=== PATIENT | male | born 1960 | race Caucasian/White ===

== ENCOUNTER 2020-04-12 13:11 | Emergency (ER) | payer MEDICARE, MEDICAID ==
[~2020-04-12] VITALS: Ht 175.3 cm; Wt 69.5 kg
[2020-04-12 14:05] LABS: BASOPHILS # (AUTO) 0.1 X10'3 (0-0.2); BASOPHILS % (AUTO) 1.2 % (0-1); EOSINOPHILS # (AUTO) 0.1 X10'3 (0-0.9); EOSINOPHILS % (AUTO) 1.8 % (0-6); HEMATOCRIT 35.1 % (42.0-52.0); HEMOGLOBIN 12.5 g/dl (14.0-17.9); LYMPHOCYTES # (AUTO) 1.9 X10'3 (1.1-4.8); LYMPHOCYTES % (AUTO) 28.3 % (21-51); MEAN CORPUSCULAR HEMOGLOBIN 30.8 PG (27.0-31.0); MEAN CORPUSCULAR HGB CONC 35.6 g/dL (33.0-36.5); MEAN CORPUSCULAR VOLUME 86.6 FL (78-98); MONOCYTES # (AUTO) 0.5 X10'3 (0-0.9); MONOCYTES % (AUTO) 7.4 % (2-12); NEUTROPHILS % (AUTO) 61.3 % (42-75); PLATELET COUNT 197 X10'3 (140-440); RED BLOOD COUNT 4.05 X10'6 (4.70-6.10); RED CELL DISTRIBUTION WIDTH 13.1 % (11.5-14.5); WHITE BLOOD COUNT 6.6 X10'3 (4.5-11.0)
[2020-04-12 14:19] LABS: ALANINE AMINOTRANSFERASE 33 U/L (12-78); ALBUMIN/GLOBULIN RATIO 1.3 (1.1-1.5); ALKALINE PHOSPHATASE 114 IU/L (46-116); ANION GAP 9 (8-16); ASPARTATE AMINO TRANSFERASE 27 U/L (10-37); BILIRUBIN,TOTAL 0.4 MG/DL (0.1-1.0); BLOOD UREA NITROGEN 15 MG/DL (7-18); CALCIUM 8.9 MG/DL (8.5-10.1); CHLORIDE 102 MMOL/L (99-107); CREATININE 0.88 MG/DL (0.60-1.10); GLUCOSE 110 MG/DL (70-104); POTASSIUM 4.4 MMOL/L (3.5-5.1); SODIUM 139 MMOL/L (135-145); TOTAL CARBON DIOXIDE 27.7 MMOL/L (24-32); TOTAL PROTEIN 7.2 G/DL (6.4-8.2); eGFR 89 ML/MIN
[2020-04-12 14:28] LABS: ETHANOL < 0.010 GM/DL (0.0-0.010)
[2020-04-12 14:41] LABS: CLARITY,URINE CLEAR (Clear); COLOR,URINE YELLOW (Yellow); GLUCOSE, URINE NEGATIVE (Neg); KETONES,URINE TRACE mg/dl (Neg); LEUKOCYTE ESTERASE ,URINE NEGATIVE (Neg); NITRITES, URINE NEGATIVE (Neg); OCCULT BLOOD,URINE NEGATIVE (Neg); PH,URINE 5.5 (4.8-8.0); PROTEIN,URINE 30 mg/dl (Neg); UROBILINOGEN,URINE 0.2 E.U/dL (0.2-1.0)
[2020-04-12 14:46] LABS: UA COLLECTION TYPE URINAL
[2020-04-12 14:47] LABS: URINE AMPHETAMINE SCREEN NEGATIVE (Neg); URINE BARBITUATE SCREEN NEGATIVE (Neg); URINE BENZODIAZEPINES SCREEN POSITIVE (Neg); URINE CANNABINOID SCREEN POSITIVE (Neg); URINE COCAINE SCREEN NEGATIVE (Neg); URINE METHADONE SCREEN NEGATIVE (Neg); URINE OPIATE SCREEN POSITIVE (Neg); URINE PHENCYCLIDINE SCREEN NEGATIVE (Neg)
[2020-04-12 14:56] LABS: BACTERIA,URINE FEW /HPF (Neg); MUCUS STRANDS NONE SEEN /LPF (Neg); RBC,URINE 0-2 /HPF (0-2); SQUAMOUS EPITHELIAL CELL,UR FEW /LPF (FEW); WBC CLUMPS,URINE FEW /HPF (NEGATIVE)
[2020-04-12 14:57] LABS: HYALINE CASTS 0-3 /LPF (NEGATIVE); YEAST FEW /HPF (NEGATIVE)
[2020-04-12] MEDS ORDERED: CEPH500C2 PO (20:15)
[2020-04-12] MEDS ORDERED: AMLO10TA13 PO (20:15)
[2020-04-12] MEDS ORDERED: METO25TA6 PO (20:15)
[2020-04-12] MEDS ORDERED: ATOR40TA72 PO (20:15)
[2020-04-12] MEDS ORDERED: LEVE500T PO (20:15)
[2020-04-12] MEDS ORDERED: LURA60TA2 PO (20:15)
[2020-04-12] MEDS ORDERED: DULO60CA65 PO (20:15)
[2020-04-12] MEDS ORDERED: DIAZ5TAB4 PO (20:15)
[2020-04-12] MEDS ORDERED: METF-438 PO (20:15)
[2020-04-12] MEDS ORDERED: INSU100V9 SQ (20:15)
[2020-04-12] MEDS ORDERED: DULO30CA52 PO (20:15)
[2020-04-12] MEDS ORDERED: HYDR-3973 PO (20:15)
[2020-04-12] MEDS ORDERED: LISI-600 PO (20:15)
[2020-04-12] MEDS ORDERED: GABA300C PO (20:15)
[2020-04-12] MEDS ORDERED: atorvastatin 20mg tablet PO SCH (21:00)
[2020-04-12] MEDS ORDERED: insulin glargine (Lantus) pen - multi-dose SQ SCH (21:00)
--- NOTE | 2020-04-12 21:35 | NUR ---
Patient is lying in bed in supine position. Patient presents as depressed with a flat affect. Patient states he called "the police" because he was feeling suicidal and wanted to stab himself. Patient still endorses SI with a plan to "by police." Patient reports A/H "I hear talking cats and they're telling me to ignore you." Patient states he has been feeling depressed "for some time." When asked where patient lives "I live in [place]." "I just don't want to live." Patient is cooperative with 1:1 assessment and HS medications. Patient is diabetic and received 20 units of Lantus. Patient capillary blood glucose was 107. Hgb A1c was 6.0. Patient has a left AKA, stump is unremarkable. Patient states "it looks ugly." Patient sounds emotional when he talks about his stump. Patient answers questions, but does not engage in conversation. Patient has flat, monotone speech. Patient has his own W/C, which is at bedside. Patient is incontinent and uses urinal during the night. Patient needs to be encouraged to get up and use the bathroom.
[2020-04-12] MEDS ORDERED: MESSAGE TO PHARMACY PO ONE (21:50)
[2020-04-12] MEDS ORDERED: dextrose 50%-water 50ml dispensing syringe IV PRN ×2 (21:50)
[2020-04-12] MEDS ORDERED: dextrose ORAL solution 15 GM/59 ML bottle PO PRN ×2 (21:50)
[2020-04-12] MEDS ORDERED: glucagon, human recombinant 1mg kit SUBCUT PRN (21:50)
[2020-04-12] MEDS: HYDROcodone/acetaminophen 10/325mg tab PO SCH (21:54)
[2020-04-12] MEDS: gabapentin 300mg capsule PO SCH (21:54)
--- NOTE | 2020-04-12 22:01 | NUR ---
Paperwork faxed to [facility].
--- NOTE | 2020-04-12 22:24 | NUR ---
Pt given HS lantus. Pt is calm and lying in the bad on his back with a blanket covering to his chest.
--- NOTE | 2020-04-13 00:24 | NUR ---
ASSUMED CARE OF PATIENT WHILE PRIMARY RN CAN BREAK , PT SLEEPING ON HIS LEFT SIDE PEACFULLY RR UNLABORED . PT IS IN THE DIRECT LINE OF NURSING STAFF AND WILL BE MONITORED AND REASSESSED NEEDED
--- NOTE | 2020-04-13 01:59 | NUR ---
Patient sleeping in supine position, audible snoring noted. Respirations even and unlabored.
--- NOTE | 2020-04-13 04:01 | NUR ---
Assume care of Pt from [place] RN. Pt currently sleeping, lying on his right side with blaknets covering to his chest. RR 12 and unlabored. Sitter and RN within view of Pt AAT.
--- NOTE | 2020-04-13 05:01 | NUR ---
Pt sat up to the edge of the bed and urinated in urinal. Pt then lay back down onto his left side and closed his eyes.
[2020-04-13 06:07] VITALS: BP_DIAS 83
--- NOTE | 2020-04-13 06:07 | NUR ---
Accucheck 77, pt reports he is hungry and did not eat anything yesterday. Pts accucheck before bed 107 and was given lantus 20 u HS. Given milk. Pt is cooperative and appropriate and sitting at the edge of the bed.
[2020-04-13] MEDS ORDERED: duloxetine 30mg CAPSULE.DR PO SCH ×2 (08:00)
[2020-04-13] MEDS ORDERED: metFORMIN 500mg tablet PO SCH (08:00)
[2020-04-13] MEDS ORDERED: metoprolol tartrate 25mg tablet PO SCH (08:00)
[2020-04-13] MEDS ORDERED: lisinopril 20mg tablet PO SCH (08:00)
[2020-04-13] MEDS ORDERED: levetiracetam 250mg tablet PO SCH (08:00)
[2020-04-13] MEDS ORDERED: lurasidone 60mg tablet PO SCH (08:00)
[2020-04-13] MEDS ORDERED: amLODIPine 5mg tablet PO SCH (08:00)
[2020-04-13] MEDS ORDERED: diazepam 5mg tablet PO SCH (08:00)
[2020-04-13] MEDS: HYDROcodone/acetaminophen 10/325mg tab PO SCH ×2 (08:07→13:21)
[2020-04-13] MEDS: gabapentin 300mg capsule PO SCH ×2 (08:07→13:21)
[2020-04-13 08:08] VITALS: BP_SYST 128
== END 2020-04-13 14:58 | disposition home or self-care (01) ==
LOC: ER 13:12
DX: R45.851 Suicidal ideations (principal); E11.9 Type 2 diabetes mellitus without complications; G89.29 Other chronic pain; F32.9 Major depressive disorder, single episode, unspecified; Z79.4 Long term (current) use of insulin; Z79.899 Other long term (current) drug therapy
CPT/HCPCS: 36415; 80053; 80305; 80320; 81001; 82948; 83036; 84443; 85025; 99285; J1815

== ENCOUNTER 2020-04-27 16:16 | Inpatient (IN) | payer MEDICARE, OTHER ==
[~2020-04-27] VITALS: Ht 175.3 cm; Wt 68.5 kg
[~2020-04-27 16:16] MED LIST: AMLO10TA13 PO; ATOR40TA72 PO; DULO30CA52 PO; GABA300C PO; HYDR-3686 PO; HYDR-4353 PO; INSU100V9 SQ; LEVE500T PO; LISI-600 PO; METF-438 PO; METO25TA6 PO; PRAZ1CAP5 PO; TRAZ-251 PO
[2020-04-27] MEDS ORDERED: acetaminophen 325mg tablet PO PRN ×2 (23:55)
[2020-04-27] MEDS ORDERED: loperamide 2mg capsule PO PRN (23:55)
[2020-04-27] MEDS ORDERED: magnesium hydroxide 30ml (MOM) UD suspension PO PRN (23:55)
[2020-04-27] MEDS ORDERED: NICOTINE POLACRILEX 2 MG LOZENGE BC PRN (23:55)
[2020-04-27] MEDS ORDERED: mag hydrox/Alum hydrox/simeth 30ml oral suspension PO PRN (23:55)
[2020-04-27] MEDS ORDERED: DIAZ5TAB4 PO (23:59)
[2020-04-28] MEDS ORDERED: hydrOXYzine 25 MG tablet PO PRN
[2020-04-28] MEDS ORDERED: traZODone 50mg tablet PO PRN
[2020-04-28] MEDS: HYDROcodone/acetaminophen 10/325mg tab PO PRN ×2 (02:44→14:48)
[2020-04-28 07:00] VITALS: BP 102/68
[2020-04-28] MEDS: levetiracetam 250mg tablet PO SCH ×2 (08:19→20:59)
[2020-04-28] MEDS: gabapentin 300mg capsule PO SCH ×3 (08:21→21:00)
[2020-04-28] MEDS: duloxetine 30mg CAPSULE.DR PO SCH (08:21)
[2020-04-28] MEDS: metoprolol tartrate 25mg tablet PO SCH ×2 (08:22→21:00)
[2020-04-28] MEDS: amLODIPine 5mg tablet PO SCH (08:22)
[2020-04-28] MEDS: lisinopril 20mg tablet PO SCH (08:23)
[2020-04-28] MEDS: metFORMIN 500mg tablet PO SCH ×2 (08:23→17:44)
[2020-04-28] MEDS: diazepam 5mg tablet PO SCH ×2 (08:23→20:59)
[2020-04-28] MEDS: nicotine 21mg patch - 24 hr TD SCH (08:24)
--- NOTE | 2020-04-28 10:00 | NUR ---
Group Therapy: Process Group This Clinicians goals for this process group were as follows: (1) Ask scaling questions about Patients current anxiety, depression, and irritability symptoms as a check-in. (2) Share psychoeducation about emotional escalation as it relates to stress and negative symptoms, Fight, flight, freeze. (3) Share psychoeducation on principles of mindfulness and emotional relaxation techniques that Patients may utilize to reduce the acuity of unwanted emotional escalation. (4) Provide psychoeducation on the STOPP acronym: Stop, Take a Breath, Observe the situation, Put things into perspective, and, Practice what works. (5) Process Clients thoughts and reflections on this topic within the group milieu. Patient identified experiencing the following levels of anxiety, depression, and anger/irritability while present in the group milieu. Anxiety: 06/04 Depression: 09/04 Anger irritability: 07/05 Patient presented as open and cooperative within the group milieu. Patient sat in a wheel chair in session, wearing a Nirvana t-shirt and shorts. Patient has had one of his legs amputated. Patiently presented as subdued in session, frequently sitting with his eyes closed during the group process; however, Patient was verbally engaged during the group conversation on physical and cognitive symptoms of emotional escalation, in addition to coping skills that one could utilize to calm down. Patient identified that his 09/04 depression feeling felt "uncontrollable." When this Clinician asked Patient what he did to, "Calm down," and cope when he begins to feel emotionally escalated, Patient stated in group that he, "Drinks." This Clinician used this honest admission to talk about adaptive vs. maladaptive coping skills, while identifying drinking as a maladaptive coping skills because it only exacerbates unwanted symptoms typically, does not address the root of psychic issues, and often creates more problems in the future. Norman Tenorio MA, LEAD DESIGNER Addendum: 04/28/20 at 1136 by Norman Tenorio Amended: Links added.
--- NOTE | 2020-04-28 17:15 | NUR ---
Nursing Progress Note: Legal hold: 5150 Client on involuntary status for DTS. Report received from PASCALE Gonzalez with use of SBAR. Why are they here: Patient called [employer] for complaints of suicidal ideation. Patient has a history of depression with SI, but recently SI is more severe. Patient has a plan to OD or stab himself. Assessment What has happened this shift: BGM: 123, 108, 146 Received patient sleeping in bed. Patient gives a story of how he lived at [facility] for 8 months and decided to get his own place so he could see his grandchildren. Patient moved in with a roommate who he does not get along with and who he states is a cockroach. Patient reports that his roommate does not clean and the house is dirty. He reports feeling suspicious of his roommate because there have been three prior roommates who have in his room from suicide. Patients cat , and the patient had his leg amputated last year which has caused him to be chronically depressed. Patient reports A/H that are saying baby cats. Reports he hears all sorts of things, some good, and some negative. Pt. crying with tears streaming down his face as he talks of the events that led up to admission. S/I, H/I: Denies. A/VH: + AH. Sleep: No naps. ADL's: Needs assistance. Group attendance: Yes. Were meds taken: Yes. Any med S/E: None noted or reported. Mental Status Exam Appearance: Clean and neat sitting in wheelchair with AKA left. Eye contact: Direct. Behavior: Calm and cooperative. Speech: Soft. Clear. Mood: Depressed. Affect: Flat. Thought process: Circumstantial. Thought Content: Getting a new place to live. Cognition: Alert and oriented. Insight: Good. Judgment: Fair. Interventions PRN's used: None. Therapeutic interventions: Maintained a safe and therapeutic environment, provided clear and simple instructions, attempted to orient to reality, provided medication education and positive encouragement, encouraged independent performance of ADLs, and maintained Q 15min safety checks. Restraints/seclusion/emergency medication: N/A Justification of Continued Inpatient Treatment: Pt. requires medication adjustments and a safe and supportive environment.
[2020-04-28 20:54] VITALS: BP 104/60
[2020-04-28] MEDS: atorvastatin 20mg tablet PO SCH (20:59)
[2020-04-28] MEDS: prazosin 1mg capsule PO SCH (21:00)
[2020-04-28] MEDS ORDERED: prazosin 1mg capsule PO SCH (21:00)
[2020-04-28] MEDS: insulin glargine (Lantus) pen - multi-dose SQ SCH (21:03)
--- NOTE | 2020-04-29 01:42 | NUR ---
Admission Note: 59y/o male admitted at [facility]. Pt brought up via wheelchair by Santosh PANG and security. Safety check done by Santosh PANG and skin check done by myself and Lisa ASHRAF. Pt is here on a 5150 for DTS, brought in by after overdosing on Latuda and Hydroxyzine. He had also drank 1/2 Beer and 1/2 pint of whiskey. Pts tox screen was positive for THC and Benzos. Pts LLUVIA is .087 per tox screen. Pt has BKA and uses wheelchair. 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 His medical problems include chronic pain, DMII, HTN, Depression and PTSD. BG 126. Pt states "I dont belong here, my roommate's and asshole." Pt was agitated upon arrival, initially refused to sign paperwork but then decided he would. Pt was provided oriented to the unit, and assisted into bed. Pt made comfortable and states he has no needs. PRNs given for pain in left leg and sleep. Addendum: 04/29/20 at 0205 by Brunilda Natarajan RN Note was entered late, pt arrived on unit 04/27/20 at 2254.
--- NOTE | 2020-04-29 04:07 | NUR ---
Nursing Progress Note: Legal hold: 5150 Expires 04/30 @ 6770 Client on involuntary status for DTS. Report received from PASCALE Maharaj with use of SBAR. Why are they here: Patient called [employer] for complaints of suicidal ideation. Patient has a history of depression with SI, but recently SI is more severe. Patient has a plan to OD or stab himself. Assessment What has happened this shift: Patient was sitting in his wheel chair in the rec room watching T.V at shift change. Patient wheels himself back to his room where 1:1 assessment is completed. When asked how patient was admitted patient states They kidnapped me and brought me here. Patient states I only had of beer and was just having a really bad morning. Patient denies SI, but endorses feeling depressed. Depression is just life for me. Patient was making small jokes during assessment. Patient has a left AKA, but doesnt like to talk about it. Patient has a prosthetic at home, but doesnt use it much because he is afraid someone is going to take. Patients HS blood sugar was 175, not on protocol and receives 20 units of Lantus. Prazosin was held to decreased blood pressure. Patient declined to remove his Nicotine patch. S/I, H/I: Patient denies both A/VH: Patient denies not today. Sleep: Patient has sedating HS medications. See Sleep Assessment for total hours. ADL's: Needs assistance. Group attendance: shift superintendent, no group. Were meds taken: Yes, without hesitation. Any med S/E: None observed, ore reported. Mental Status Exam Appearance: Clean, neat, wearing own clothes. Pt. uses w/c due to left AKA. Eye contact: Good Behavior: Calm, cooperative, watching T.V with peers. Then returns to room until bedtime. Speech: Clear, soft, normal rate/rhythm. Mood: Depressed. Affect: Restricted Thought process: Linear Thought Content: Getting a new place to live. Cognition: A&O x4 Insight: Good. Judgment: Fair. Interventions PRN's used: None. Therapeutic interventions: Maintained a safe and therapeutic environment, provided clear and simple instructions, attempted to orient to reality, provided medication education and positive encouragement, encouraged independent performance of ADLs, and maintained Q 15min safety checks. Restraints/seclusion/emergency medication: N/A Justification of Continued Inpatient Treatment: Pt. requires medication adjustments and a safe and supportive environment.
[2020-04-29] MEDS: lurasidone 20mg tablet PO SCH (07:46)
[2020-04-29] MEDS: gabapentin 300mg capsule PO SCH ×3 (07:46→21:03)
[2020-04-29] MEDS: metFORMIN 500mg tablet PO SCH ×2 (07:46→17:40)
[2020-04-29] MEDS: levetiracetam 250mg tablet PO SCH ×2 (07:46→21:05)
[2020-04-29] MEDS: diazepam 5mg tablet PO SCH ×2 (07:46→21:02)
[2020-04-29] MEDS: amLODIPine 5mg tablet PO SCH (07:47)
[2020-04-29] MEDS: duloxetine 30mg CAPSULE.DR PO SCH (07:47)
[2020-04-29] MEDS: lisinopril 20mg tablet PO SCH (07:47)
[2020-04-29] MEDS: metoprolol tartrate 25mg tablet PO SCH ×2 (07:47→21:02)
[2020-04-29] MEDS: nicotine 21mg patch - 24 hr TD SCH (07:55)
[2020-04-29 08:12] VITALS: BP 108/74
--- NOTE | 2020-04-29 08:57 | NUR ---
DISCHARGE PLANNING Called [facility] to inform that Chris was in the ER on 04/27/20 when he missed his appt with Dr Sheikh. Re-scheduled the appt to 05/07/20 at 1:00 PM.
--- NOTE | 2020-04-29 09:34 | NUR ---
PSYCHOSOCIAL ASSESSMENT Chris is a 59 y/o male who was placed on 5150 for danger to self. He stated, "I was having a really bad day". He reported he had been consuming alcohol (beer and whiskey) and called his psychologist and stated, "I can't take it anymore". He reported he took 2-3 tabs of one of his medications at the same time as well. The psychologist called for a welfare check and an ambulance showed up and took him to [facility]. His main complaint tends to be his displeasure with his current housing. He is a recent above knee amputee and recently moved to [place] to be closer to family, however, they do not want anything to do with him due to his alcohol use. Chris was recently at [facility] (04/13/20-04/16/20). He was referred to and interviewed for [facility]. He was informed they could assist with finding new housing and he declined and stated, "it could be worse than what I already have". One of his main complaints during his last admission was that he was in need of a PCP. Making Line Worker referred him to [facility] and scheduled him an appt with Dr Sheikh on 04/27/20 which he missed due to being at [facility]. Chris has several agencies involved with his care: [facility], [facility], [facility], and [facility]. He seems to be minimizing his alcohol use and the subsequent consequences of it. PAULA Kumar Addendum: 04/29/20 at 0936 by Millie SHI Amended: Links added.
--- NOTE | 2020-04-29 10:00 | NUR ---
Group Therapy: Process Group This Clinicians goals for this process group were as follows: (1) Ask scaling questions about Patients current anxiety, depression, and irritability symptoms as a check-in. (2) Share with Patients psychoeducation about the importance of being able to identify safe, and supportive people who can assist them with their mental and emotional needs. (3) Share psychoeducation on interpersonal boundaries and considerations to assist Patients in developing the ability to discern which groups and individuals will be helpful in assisting them during times of emotional escalation and crisis. (4) Review emotional relaxation techniques (5) Engage Patients in discussion of the topics discussed within the group milieu. Patient identified experiencing the following levels of anxiety, depression, and anger/irritability while present in the group milieu. Anxiety: 03/05 Depression: 05/05 Anger irritability: 02/02 Patient presented as open and cooperative within the group milieu. Patient was dressed in a Nirvana shirt, and sat in a wheel chair in the back of the room within the milieu. His left leg has been amputated. Patient presented as nonobtrusive during session and participated occasionally in the discussion on interpersonal boundaries and considerations to note when trying to create a supportive network of people around him to assist him in his mental health treatment. Patient reported his belief that he did not have any close friends or family members that he could rely on who could assist him in his mental health treatment, or support his mental well-being. Patient presented as lethargic in session, often sitting with his eyes closed in his wheel chair, before falling asleep in his chair near the end of the process group. Norman Tenorio MA, ELECTRICAL/INSTRUMENT TECHNICIAN Addendum: 04/29/20 at 1140 by Norman Tenorio SS Amended: Links added.
[2020-04-29] MEDS: HYDROcodone/acetaminophen 10/325mg tab PO PRN (13:39)
--- NOTE | 2020-04-29 15:21 | NUR ---
[facility] REFERRAL Completed and faxed [facility] referral. PAULA Kumar
--- NOTE | 2020-04-29 17:56 | NUR ---
Nursing Progress Note: Legal hold: 5150 Expires 04/30 @ 3747 Client on involuntary status for DTS. Report received from PASCALE Gonzalez with use of SBAR. Why are they here: Patient called [employer] for complaints of suicidal ideation. Patient has a history of depression with SI, but recently SI is more severe. Patient has a plan to OD or stab himself. Assessment What has happened this shift: Pt admits to depression due to his living situation, contracts for safety here. Pt is still endorsing AH, "I still hear the kitties." They tell him to "get outta here." Pt denies VH, "no, I'm not seeing anything this time." Pt stated, "you know the way your backyard looks in the winter? That's the way the inside of my house looks." Pt states that he has tried to talk to his landlord about it but she won't return his calls. Pt states candida is a slumlord and he told her that he wasn't going to pay rent anymore. Pt states he is worried about the new furniture he bought. Pt states the SW here, (he can't remember her name) is offering him a new place to live (can't remember the name of the place.) Pt states his memory has been bad since the chemotherapy. Pt clarified chemotherapy as the meds he had to take for 11 months including weekly injections to get rid of Hep C. Pt states that while he was on those meds is when he first became suicidal because they made him feel like dying. Pt c/o 8/10 pain in his buttocks because there was no cushion on his wheelchair. Pt stated his left leg also hurt. Pt medicated with prn [place] 10/325 mg at 1339. A wheelchair cushion was obtained and placed on his chair. Pt expressed relief. S/I, H/I: Pt denies A/VH: + AH Sleep: Pt slept 6.5 hours last night per noc shift report, naps during the day. ADL's: Left BKA, needs assist/set up with showers. Group attendance: Yes Were meds taken: Yes Any med S/E: None noted or reported Mental Status Exam Appearance: Clean, neat, wearing own clothes. Pt. uses w/c due to left AKA. Eye contact: Good Behavior: Calm, cooperative, watches T.V with peers. Speech: Clear, soft, normal rate/rhythm. Mood: Depressed. Affect: Blunted Thought process: Linear Thought Content: Getting a new place to live. Cognition: A&O x4 Insight: Good. Judgment: Fair. Interventions PRN's used: [place] 10/325 mg Therapeutic interventions: 1:1 assessment, active listening, therapeutic conversation, ensured contract for safety, medication administration/education/monitoring, pain management, fall prevention, Q 15 min safety checks. Restraints/seclusion/emergency medication: N/A Justification of Continued Inpatient Treatment: Pt requires crisis intervention and stabilization in a safe and therapeutic environment. Pt does not wish to return to his house.
[2020-04-29 20:00] VITALS: BP 113/70
[2020-04-29] MEDS: prazosin 1mg capsule PO SCH ×2 (21:00→21:05)
[2020-04-29] MEDS: atorvastatin 20mg tablet PO SCH (21:04)
[2020-04-29] MEDS: insulin glargine (Lantus) pen - multi-dose SQ SCH (21:08)
[2020-04-29 21:12] VITALS: BP 104/72
[2020-04-30] MEDS: hydrOXYzine 25 MG tablet PO PRN ×2 (00:29→01:21)
--- NOTE | 2020-04-30 04:09 | NUR ---
Nursing Progress Note: Legal hold: 5150 Expires 04/30 @ 9916 Client on involuntary status for DTS. Report received from PASCALE Mott with use of SBAR. Why are they here: Patient called [employer] for complaints of suicidal ideation. Patient has a history of depression with SI, but recently SI is more severe. Patient has a plan to OD or stab himself. Assessment What has happened this shift: Received patient sitting in rec room watching T.V at shift change. Patient greets this telegraphic typewriter operator with a smile. Patient states I am feeling a little less depressed. Patient looking forward to going home, when asked about his ETOH habits patient states I am going to try and stop. When I drink it makes me less mad at my roommate. Patient was counseled that drinking is not a good coping skill and to think of other alternatives to help him cope. Patient states it also affects how I take my medication. Patient states most of meds youre not supposed to drink alcohol. Patient required no PRN for pain this shift. Held patients Prazosin due to decreased blood pressure. HS blood sugar was 202. Patient opted to keep his Nicotine patch on. Patient woke up from a very real nightmare, It felt like someone was pulling my leg, it took me a while to realize, I dont have a leg anymore. Patient is feeling anxious, patient is reassured that he is safe and he was having a nightmare. Administered 50mg of Atarax MRX1. Will continue to monitor. Patient required 2nd dose and is sleeping comfortably. S/I, H/I: Patient denies both. A/VH: Patient denies both. Sleep: Patient has sedating HS medications. See Sleep Assessment for total hours. ADL's: Needs assistance. Pt. uses a w/c to get around due to left AKA. Group attendance: solutions sales consultant, no group. Were meds taken: Yes, without incident. Any med S/E: None observed, ore reported. Mental Status Exam Appearance: Clean, neat, wearing own clothes. Pt. uses w/c due to left AKA. Eye contact: Good Behavior: Calm, cooperative, watching T.V with peers. Pt. social with roommate. Speech: Clear, soft, normal rate/rhythm. Mood: Euthymic. Affect: Congruent with mood. Thought process: Linear Thought Content: Going home. Cognition: A&O x4 Insight: Poor. Judgment: Poor. Interventions PRN's used: None. Therapeutic interventions: Maintained a safe and therapeutic environment, provided clear and simple instructions, medication administration/education/monitoring, positive encouragement, encouraged independent performance of ADLs, and maintained Q 15min safety checks. Restraints/seclusion/emergency medication: N/A Justification of Continued Inpatient Treatment: Patient requires interruption of current crisis with medication adjustments in a safe and supportive environment.
[2020-04-30 08:00] VITALS: BP 116/79
[2020-04-30] MEDS: duloxetine 30mg CAPSULE.DR PO SCH (08:04)
[2020-04-30] MEDS: metoprolol tartrate 25mg tablet PO SCH (08:05)
[2020-04-30] MEDS: gabapentin 300mg capsule PO SCH ×2 (08:05→12:54)
[2020-04-30] MEDS: diazepam 5mg tablet PO SCH (08:05)
[2020-04-30] MEDS: metFORMIN 500mg tablet PO SCH (08:05)
[2020-04-30] MEDS: lurasidone 20mg tablet PO SCH (08:05)
[2020-04-30] MEDS: amLODIPine 5mg tablet PO SCH (08:05)
[2020-04-30] MEDS: levetiracetam 250mg tablet PO SCH (08:05)
[2020-04-30 08:06] VITALS: BP_SYST 116
[2020-04-30] MEDS: lisinopril 20mg tablet PO SCH (08:06)
[2020-04-30] MEDS: HYDROcodone/acetaminophen 10/325mg tab PO PRN (08:06)
[2020-04-30] MEDS: nicotine 21mg patch - 24 hr TD SCH (08:10)
--- NOTE | 2020-04-30 09:00 | NUR ---
Fall Pt fell at 0830 PA notified. Pt transferring from wheelchair to normal chair and forgot to put on the wheelchair brakes and the chair slipped out and the pt fell to the floor, hitting his right elbow. No daniels visible, vital signs WNL, pt does c/o pain in right elbow, full ROM.
--- NOTE | 2020-04-30 10:00 | NUR ---
Group Therapy: Process Group This Clinicians goals for this process group were as follows: (1) Ask scaling questions about Patients current anxiety, depression, and irritability symptoms as a check-in. (2) Share psychoeducation about the importance of being able to identify regular activities, support people, and thoughts (Anchors) that contribute to mental health well-being and stability. (3) Share psychoeducation about how the gradual removal of said activities, people and behaviors may lead to the erosion of mental well-being and stability. (4) Encourage Patients to identify support anchors that they need to maintain in their life that will promote their mental and emotional well-being. (5) Engage Patients in discussion of the topics shared within the group milieu. Patient identified experiencing the following levels of anxiety, depression, and anger/irritability while present in the group milieu. Anxiety: 09/04 Depression: 03/05 Anger/irritability: 09/04 Patient presented as open and cooperative within the group milieu. Patient sat in a wheelchair in the back of the room. One of Patient's legs has been amputated. Patient wore a nirvana t-shirt and shorts. He presented as non-obtrusive and verbally engaged within the group milieu. Patient reported heightened symptoms of anxiety, and anger/irritability within the group milieu. This Clinician checked in verbally with Patient to discuss said symptoms. Patient said that his inability to go home was leading to his feelings of anxiety and irritability, and mentioned that care-providers on the unit were not letting him leave. Patient made significant insight comments on the topic being discussed within the therapeutic milieu. More specifically, in the context of discussing how removing, "emotional anchors," which ground a person to positive baseline mental health, Patient reported that he had severed all the anchors being discussed in group, last Sunday, which he stated, "Was the reason I came back here." Patient identified that maintaining his sobriety and taking his medications on a daily basis are crucial factors in order for him to maintain optimal mental and emotional health. Norman Tenorio MA, BUNCH MAKER Addendum: 04/30/20 at 1125 by Norman SHI Amended: Links added.
[2020-04-30] MEDS ORDERED: TRAZ-251 PO (15:28)
[2020-04-30] MEDS ORDERED: HYDR-3686 PO (15:28)
[2020-04-30] MEDS ORDERED: NICO-687 TD (15:28)
[2020-04-30] MEDS ORDERED: LURA20TA PO (15:28)
[2020-04-30] MEDS ORDERED: LISI-643 PO (15:28)
[2020-04-30] MEDS ORDERED: VAL5T PO (15:28)
[2020-04-30] MEDS ORDERED: NOR5T PO (15:28)
[2020-04-30] MEDS ORDERED: HYDR-4353 PO (15:28)
--- NOTE | 2020-04-30 17:38 | NUR ---
DISCHARGE NOTE: Pt discharged home at 1735, cab picked him up, PCT wheeled him off the unit in w/c outside to the cab. Pt was provided with paper RX's, POM's returned to him as well as the rest of his belongings. Pt denied SI. Pt expressed understanding of his discharge instructions.
[2020-05-01] MEDS ORDERED: lurasidone 20mg tablet PO SCH (07:30)
== END 2020-04-30 17:35 | disposition home or self-care (01) | DRG 885 ==
LOC: ADULT MH 22:47
PROVIDERS: ADMIT Psychiatry & Neurology Psychiatry; ATTEND Psychiatry & Neurology Psychiatry
DX: F31.9 Bipolar disorder, unspecified (principal); R45.851 Suicidal ideations; F17.210 Nicotine dependence, cigarettes, uncomplicated; E11.9 Type 2 diabetes mellitus without complications; G89.29 Other chronic pain; T50.902A Poisoning by unspecified drugs, medicaments and biological substances, intentional self-harm, initial encounter; E78.5 Hyperlipidemia, unspecified; F10.20 Alcohol dependence, uncomplicated; F43.12 Post-traumatic stress disorder, chronic; I10 Essential (primary) hypertension; Z96.611 Presence of right artificial shoulder joint; Z96.612 Presence of left artificial shoulder joint; Z96.642 Presence of left artificial hip joint; Z79.4 Long term (current) use of insulin; Z79.899 Other long term (current) drug therapy; Z80.3 Family history of malignant neoplasm of breast; Z89.512 Acquired absence of left leg below knee; Z89.612 Acquired absence of left leg above knee; Y92.89 Other specified places as the place of occurrence of the external cause; Z81.1 Family history of alcohol abuse and dependence; Z71.6 Tobacco abuse counseling
CPT/HCPCS: 36415; 82948; 83036; 87081; J1815; Q0177

== ENCOUNTER 2020-09-22 15:53 | Emergency (ER) | payer MEDICARE, OTHER ==
[~2020-09-22] VITALS: Ht 175.3 cm; Wt 61.7 kg
[~2020-09-22 15:53] MED LIST changes: -AMLO10TA13 PO; -LISI-600 PO; +LISI-643 PO; +LURA20TA PO; +NICO-687 TD; +NOR5T PO; +VAL5T PO
[2020-09-22 16:23] VITALS: BP 130/84
--- NOTE | 2020-09-22 16:41 | NUR ---
Patient states he has no desire to be here. Patient also states he has no complaints.
--- NOTE | 2020-09-22 16:55 | NUR ---
Patient refused to have chest xray performed, JESUS Horner notified regarding this.
--- NOTE | 2020-09-22 17:15 | NUR ---
Pt continuing to refuse all treatment or assessments. Pt requesting to leave.
== END 2020-09-22 17:29 | disposition left against medical advice (07) ==
LOC: ER 15:54
DX: Z04.3 Encounter for examination and observation following other accident (principal); E11.9 Type 2 diabetes mellitus without complications; G89.29 Other chronic pain; F32.9 Major depressive disorder, single episode, unspecified; Z98.890 Other specified postprocedural states; Z79.4 Long term (current) use of insulin; Z79.899 Other long term (current) drug therapy; W18.30XA Fall on same level, unspecified, initial encounter; Y93.89 Activity, other specified; Y99.8 Other external cause status; Y92.89 Other specified places as the place of occurrence of the external cause
CPT/HCPCS: 99283